=== PATIENT | female | born 1975 | race Caucasian/White ===

== ENCOUNTER 2019-04-19 08:49 | Inpatient (IN) | payer MEDICAID ==
[~2019-04-19] VITALS: Ht 170.2 cm; Wt 91.3 kg
[2019-04-19] MEDS ORDERED: LOSA50TA88 PO (09:18)
[2019-04-19] MEDS ORDERED: ATOR80TA59 PO (09:18)
[2019-04-19] MEDS ORDERED: cogentin PO (09:18)
[2019-04-19] MEDS ORDERED: HALD100I2 IM (09:18)
[2019-04-19] MEDS ORDERED: PLAV1TAB2 PO (09:18)
[2019-04-19] MEDS ORDERED: BUSP15TA47 PO (09:18)
[2019-04-19] MEDS ORDERED: MIRT1TAB16 PO (09:18)
[2019-04-19] MEDS ORDERED: VITA1CHW7 PO (09:18)
[2019-04-19] MEDS ORDERED: HALO10TA20 PO (09:18)
[2019-04-19] MEDS ORDERED: LEVO25TA5 PO (09:18)
[2019-04-19] MEDS ORDERED: ALBU83IN NEB (09:18)
[2019-04-19] MEDS ORDERED: TRIL1TAB PO (09:18)
[2019-04-19 10:09] LABS: HEMATOCRIT 36.7 % (36.0-47.0); HEMOGLOBIN 11.8 g/dl (12.0-15.5); MEAN CORPUSCULAR HEMOGLOBIN 27.7 pg (27.0-33.0); MEAN CORPUSCULAR HGB CONC 32.2 g/dl (32.0-36.5); MEAN CORPUSCULAR VOLUME 86.2 fl (80.0-96.0); PLATELET COUNT, AUTOMATED 298 10^3/uL (150-450); RED BLOOD COUNT 4.26 10^6/uL (4.00-5.40); WHITE BLOOD COUNT 7.2 10^3/uL (4.0-10.0)
[2019-04-19 10:38] LABS: HCG, SERUM QUALITATIVE NEGATIVE (NEGATIVE)
[2019-04-19 10:40] LABS: ACETAMINOPHEN LEVEL < 2.0 UG/ML (10.0-30.0); ALBUMIN 3.5 GM/DL (3.2-5.2); ALT/SGPT 21 U/L (12-78); BILIRUBIN,DIRECT 0.1 MG/DL (0.0-0.2); BILIRUBIN,TOTAL 0.2 MG/DL (0.2-1.0); BLOOD UREA NITROGEN 18 MG/DL (7-18); CALCIUM LEVEL 9.4 MG/DL (8.5-10.1); CARBON DIOXIDE LEVEL 23 MEQ/L (21-32); CHLORIDE LEVEL 108 MEQ/L (98-107); CREATININE FOR GFR 0.61 MG/DL (0.55-1.30); ETHYL ALCOHOL (ETHANOL) < 0.003 % (0.000-0.010); GLOMERULAR FILTRATION RATE > 60.0 (>58); GLUCOSE, FASTING 93 MG/DL (70-100); POTASSIUM SERUM 3.9 MEQ/L (3.5-5.1); SALICYLATE LEVEL 3.9 MG/DL (5.0-30.0); SODIUM LEVEL 140 MEQ/L (136-145); TOTAL PROTEIN 6.9 GM/DL (6.4-8.2)
[2019-04-19 12:42] LABS: AMPHETAMINES LEVEL URINE NEGATIVE (NEGATIVE); BARBITURATES URINE NEGATIVE (NEGATIVE); BENZODIAZEPINES URINE NEGATIVE (NEGATIVE); CANNABINOIDS URINE POSITIVE (NEGATIVE); COCAINE METABOLITE URINE NEGATIVE (NEGATIVE); METHADONE URINE NEGATIVE (NEGATIVE); OPIATES URINE NEGATIVE (NEGATIVE); PHENCYCLIDINE URINE NEGATIVE (NEGATIVE)
[2019-04-19] MEDS ORDERED: OLANZapine 5 MG TAB PO PRN (12:45)
[2019-04-19] MEDS ORDERED: MOM 30ML SUSPENSION UDC PO PRN (12:45)
[2019-04-19] MEDS ORDERED: ACETAMINOPHEN TAB 650MG DOSE (2X325MG) PO PRN (13:00)
[2019-04-19] MEDS ORDERED: METO1TAB87 PO (13:39)
[2019-04-19] MEDS ORDERED: OMEP-172 PO (13:39)
[2019-04-19] MEDS ORDERED: REME30TA PO (13:39)
[2019-04-19] MEDS ORDERED: BENZ-52 PO (13:39)
[2019-04-19] MEDS ORDERED: RANO500T7 PO (13:39)
[2019-04-19] MEDS ORDERED: FAMO20TA PO (13:39)
[2019-04-19] MEDS ORDERED: NITR4TASL SL (13:39)
[2019-04-19] MEDS ORDERED: PROAAER10 INH (13:40)
[2019-04-19 15:39] VITALS: BP 121/68
[2019-04-19 18:00] VITALS: BP 123/53
[2019-04-20 06:35] VITALS: BP 122/56
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
--- NOTE | 2019-04-20 13:37 | HPEPDOC ---
[facility] Medical History & Physical Date of Admission Apr 20, 2019 Date of Service: Apr 20, 2019 History and Physical CHIEF COMPLAINT: Admitted to inpatient mental health unit for suicidal ideation HISTORY OF PRESENT ILLNESS: 43-year-old female with past medical history of hypertension, schizophrenia, bipolar depression and NC is admitted to inpatient mental health unit for suicidal ideation. Patient reports that she ran out of her meds about a week ago and hasn't taken any of her meds since then. She started having auditory hallucinations telling her to commit suicide, so she came in seeking help. Medically she reports having an NC within the last 1-2 months, reports having cardiac cath which showed a 30% blockage in one of her arteries for which she is supposedly going to get a stent in the near future. She has not taken her cardiac meds for the past week as well. Currently, she denies any shortness of breath, chest pain, nausea, vomiting, abdominal pain or diarrhea. 10 point review of system is negative except for above PAST MEDICAL HISTORY: 1. Schizophrenia. 2. Bipolar. 3. NC. 4. Major depression disorder. 5. Hypertension PAST SURGICAL HISTORY: 1. Tubal ligation. 2. . 3. Tonsillectomy. SOCIAL HISTORY: Current smoker, smoked 1 pack per day for over 30 years Denies alcohol. Smokes marijuana, did Jazz a few days ago FAMILY HISTORY: Positive for heart disease ALLERGIES: Please see below. HOME MEDICATIONS: Please see below. PHYSICAL EXAMINATION: VITAL SIGNS: Please see below. GENERAL: No distress HEENT: Normocephalic, atraumatic, moist mucous membranes NECK: Supple CARDIOVASCULAR EXAMINATION: S1, S2, no murmurs RESPIRATORY EXAMINATION: Clear to auscultation, no wheezing ABDOMINAL EXAMINATION: Soft, nontender, nondistended, positive bowel sounds EXTREMITIES: Range of motion intact SKIN: No rash NEUROLOGICAL EXAMINATION: Alert and oriented 3, no focal deficits PSYCHIATRIC EXAMINATION: Calm and cooperative LABORATORY DATA: See below. MICROBIOLOGY: Please see below. ASSESSMENT: 3-year-old female with past medical history of hypertension, schizophrenia, bipolar, major depression disorder who had a recent NC is admitted to inpatient mental health unit for suicidal ideation. PLAN: 1. Suicidal ideation/schizophrenia. Having auditory hallucinations due to missing her medication for 1 week, management as per primary team. 2. Coronary artery disease. Status post NC recently, reportedly underwent left heart cath in [place] and had a 30% blockage in one of her arteries, reports that she is going to get a stent in the near future, has not taken any for cardiac meds for a whole week, continue optimal medical management with Plavix, statin, beta lubna and Ranexa. 3. Hypertension. Continue losartan, metoprolol, and Ranexa DVT prophylaxis: None GI prophylaxis: Home Pepcid and PPI Vital Signs Vital Signs Date Time Temp Pulse Resp B/P (MAP) Pulse Ox O2 Delivery O2 Flow Rate FiO2 04/20/19 06:35 98.2 72 12 122/56 (78) Room Air 04/19/19 15:39 96 Home Medications Scheduled Atorvastatin Calcium (Atorvastatin Calcium) 80 Mg Tablet, 80 MG PO QHS Benztropine Mesylate (Benztropine Mesylate) 1 Mg Tablet, 1 MG PO BID INCREASED AT INPATIENT FACILITY FROM 0.5MG Buspirone HCl (Buspirone HCl) 15 Mg Tablet, 15 MG PO TID Cholecalciferol (Vitamin D3) (Vitamin D3) 2,000 Unit Tab.chew, 2,000 UNIT PO DAILY Clopidogrel Bisulfate (Plavix) 75 Mg Tablet, 75 MG PO DAILY Famotidine (Famotidine) 20 Mg Tablet, 20 MG PO DAILY Haloperidol (Haloperidol) 10 Mg Tablet, 10 MG PO QHS INCREASED AT INPATIENT FACILITY FROM 5MG TO 10MG Haloperidol Decanoate (Haldol Decanoate 100) 100 Mg/1 Ml Ampul, 1 ML IM QMONTH Levothyroxine Sodium (Levothyroxine Sodium) 25 Mcg Tablet, 25 MCG PO DAILY Losartan Potassium (Losartan Potassium) 50 Mg Tablet, 50 MG PO DAILY Metoprolol Tartrate (Metoprolol Tartrate) 25 Mg Tablet, 25 MG PO DAILY Mirtazapine (Remeron) 30 Mg Tablet, 30 MG PO QHS Omeprazole (Omeprazole) 20 Mg Capsule.dr, 20 MG PO DAILY Oxcarbazepine (Trileptal) 300 Mg Tablet, 300 MG PO BID INCREASED AT INPATIENT FACILITY FROM 150MG Ranolazine (Ranexa) 500 Mg Tab.er.12h, 500 MG PO BID Scheduled PRN Albuterol Sulf (Albuterol Sulfate) 2.5 Mg/3 Ml Vial.neb, 1 VIAL NEB Q4HP PRN for SOB/WHEEZING Albuterol Sulfate (Proair Hfa) 8.5 Gm Hfa.aer.ad, 2 PUFF INH QID PRN for SHORTNESS OF BREATH Nitroglycerin (Nitrostat) 0.4 Mg Tab.subl, 0.4 MG SL Q5MP PRN for CHEST PAIN Allergies Coded Allergies: aspirin (Verified Allergy, Severe, throat closes up, 04/19/19) shellfish derived (Verified Allergy, Severe, ANAPHYLAXIS, 04/19/19) risperidone (Verified Allergy, Intermediate, rash, 04/19/19) divalproex sodium (Verified Adverse Reaction, Unknown, diarrhea, 04/19/19) A-FIB/CHADSVASC A-FIB History Current/History of A-Fib/PAF?: No URSULA MCCRARY MD Apr 20, 2019 13:36
[2019-04-20] MEDS: FAMOTIDINE 20 MG TAB PO SCH (13:58)
[2019-04-20] MEDS: LOSARTAN 50 MG TAB PO SCH (13:59)
[2019-04-20] MEDS: OMEPRAZOLE 20 MG CAP PO SCH (13:59)
[2019-04-20] MEDS: CLOPIDOGREL 75 MG TAB PO SCH (13:59)
[2019-04-20] MEDS: METOPROLOL TART 25 MG TABLET PO SCH (14:00)
[2019-04-20] MEDS: IBUPROFEN 400 MG TAB PO PRN (14:03)
--- NOTE | 2019-04-20 14:33 | ECGEPIP ---
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
[2019-04-20] MEDS: LEVOTHYROXINE 25MCG TABLET (0.025MG) PO SCH (14:37)
[2019-04-20] MEDS: RANOLAZINE 500 MG ER TAB PO SCH ×2 (14:37→21:20)
[2019-04-20 18:00] VITALS: BP 134/74
[2019-04-20] MEDS: ATORVASTATIN 20 MG TAB PO SCH (21:20)
[2019-04-20] MEDS: OXcarbazepine 300 MG TAB PO SCH (21:20)
[2019-04-20] MEDS: busPIRone 5 MG TAB PO SCH (21:20)
[2019-04-20] MEDS: MIRTAZAPINE 15 MG TAB PO SCH (21:20)
[2019-04-20] MEDS: haloperidoL 5 MG TAB PO SCH (21:20)
[2019-04-21] MEDS: LEVOTHYROXINE 25MCG TABLET (0.025MG) PO SCH (06:16)
[2019-04-21 06:20] VITALS: BP 96/48
[2019-04-21] MEDS: CLOPIDOGREL 75 MG TAB PO SCH (09:30)
[2019-04-21] MEDS: METOPROLOL TART 25 MG TABLET PO SCH (09:30)
[2019-04-21] MEDS: LOSARTAN 50 MG TAB PO SCH (09:30)
[2019-04-21] MEDS: OXcarbazepine 300 MG TAB PO SCH ×2 (09:30→21:08)
[2019-04-21] MEDS: FAMOTIDINE 20 MG TAB PO SCH (09:30)
[2019-04-21] MEDS: OMEPRAZOLE 20 MG CAP PO SCH (09:30)
[2019-04-21] MEDS: RANOLAZINE 500 MG ER TAB PO SCH ×2 (09:30→21:06)
[2019-04-21] MEDS: busPIRone 5 MG TAB PO SCH ×3 (09:30→21:08)
[2019-04-21 15:57] VITALS: BP 109/55
--- NOTE | 2019-04-21 20:59 | MHIPN ---
DATE: 04/21/2019 The patient today states that she is still experiencing auditory hallucinations, but she denies having suicidal thoughts. She says that it usually takes her about 4 days on medications before she starts feeling better. She has been started on Haldol and wants to restart the Haldol decanoate before she is discharged. MENTAL STATUS EXAMINATION: The patient is alert and oriented times three. He is pleasant, cooperative, verbally spontaneous. Eye contact is fair. Psychomotor activity is decreased. There is no formal thought disorder noted. Her mood is "okay." Affect is flat. She is not psychotic, suicidal or homicidal. Concentration is fair. Memory intact. Insight and judgment poor. Diagnoses Unspecified psychotic disorder. PTSD, chronic. Opioid use disorder, severe, in sustained remission. Hallucinogen use disorder, severe. Tobacco use disorder, severe. Cannabis use disorder, moderate. TREATMENT PLAN: At this point, we will continue to monitor the patient for her ongoing psychotic symptoms and resolution of any suicidal thoughts. CRISTINA
[2019-04-21] MEDS: MIRTAZAPINE 15 MG TAB PO SCH (21:07)
[2019-04-21] MEDS: IBUPROFEN 400 MG TAB PO PRN (21:08)
[2019-04-21] MEDS: ATORVASTATIN 20 MG TAB PO SCH (21:08)
[2019-04-21] MEDS: haloperidoL 5 MG TAB PO SCH (21:08)
[2019-04-22 06:14] VITALS: BP 123/60
[2019-04-22] MEDS: LEVOTHYROXINE 25MCG TABLET (0.025MG) PO SCH (06:29)
[2019-04-22] MEDS: FAMOTIDINE 20 MG TAB PO SCH (08:31)
[2019-04-22] MEDS: METOPROLOL TART 25 MG TABLET PO SCH (08:31)
[2019-04-22] MEDS: RANOLAZINE 500 MG ER TAB PO SCH ×2 (08:31→20:46)
[2019-04-22] MEDS: CLOPIDOGREL 75 MG TAB PO SCH (08:31)
[2019-04-22] MEDS: OXcarbazepine 300 MG TAB PO SCH ×2 (08:31→20:45)
[2019-04-22] MEDS: OMEPRAZOLE 20 MG CAP PO SCH (08:31)
[2019-04-22] MEDS: busPIRone 5 MG TAB PO SCH ×3 (08:31→20:46)
[2019-04-22] MEDS: LOSARTAN 50 MG TAB PO SCH (08:32)
[2019-04-22 15:52] VITALS: BP 116/65
[2019-04-22] MEDS: IBUPROFEN 400 MG TAB PO PRN (18:40)
--- NOTE | 2019-04-22 20:07 | MHIPN ---
DATE: 04/22/2019 The patient today states, "I am feeling fine." She says that she is just having some of her sciatic nerve pain down her legs. She says that she did not sleep as well. She is denying suicidal ideations. MENTAL STATUS EXAMINATION: She is alert and oriented times three. She is verbally spontaneous. Eye contact is fairly good. There is no formal thought disorder noted. She says her mood is good. Affect is constricted but appropriate to mood. She is not psychotic, suicidal or homicidal. Concentration is fair. Memory is intact. Insight and judgment fair. Diagnoses Unspecified psychotic disorder. PTSD, chronic. Opioid use disorder, severe, in sustained remission. Hallucinogen use disorder, severe. Tobacco use disorder, severe. TREATMENT PLAN: We will continue to monitor the patient for continued elevation and stabilization of her mood. We will continue to monitor the patient for resolution of suicidal ideations. CRISTINA
[2019-04-22] MEDS: ATORVASTATIN 20 MG TAB PO SCH (20:46)
[2019-04-22] MEDS: MIRTAZAPINE 15 MG TAB PO SCH (20:46)
[2019-04-22] MEDS: haloperidoL 5 MG TAB PO SCH (20:47)
[2019-04-23] MEDS: LEVOTHYROXINE 25MCG TABLET (0.025MG) PO SCH (05:56)
[2019-04-23 06:23] VITALS: BP 139/60
[2019-04-23] MEDS: OXcarbazepine 300 MG TAB PO SCH (09:21)
[2019-04-23] MEDS: FAMOTIDINE 20 MG TAB PO SCH (09:22)
[2019-04-23] MEDS: RANOLAZINE 500 MG ER TAB PO SCH (09:22)
[2019-04-23] MEDS: CLOPIDOGREL 75 MG TAB PO SCH (09:22)
[2019-04-23] MEDS: busPIRone 5 MG TAB PO SCH (09:22)
[2019-04-23] MEDS: OMEPRAZOLE 20 MG CAP PO SCH (09:23)
[2019-04-23] MEDS: METOPROLOL TART 25 MG TABLET PO SCH (09:23)
[2019-04-23 09:24] VITALS: BP 129/69
[2019-04-23] MEDS: LOSARTAN 50 MG TAB PO SCH (09:24)
[2019-04-23] MEDS ORDERED: BENZ-52 PO (10:36)
[2019-04-23] MEDS ORDERED: TRIL1TAB PO (10:36)
[2019-04-23] MEDS ORDERED: BUSP15TA47 PO (10:36)
[2019-04-23] MEDS ORDERED: REME30TA PO (10:36)
[2019-04-23] MEDS ORDERED: HALO10TA20 PO (10:36)
--- NOTE | 2019-04-23 10:37 | MHDSPDOC ---
[facility] Discharge Summary Discharge Summary DATE OF ADMISSION: Apr 19, 2019 at 12:31 DATE OF DISCHARGE: 04/23/18 Discharge Gloria Esparza MRN: N/A Date of : N/A Date of Service: 04/23/2019 Diagnoses PTSD, chronic. Opioid use disorder, severe, in sustained remission. Hallucinogen use disorder, severe. Tobacco use disorder, severe. Cannabis use disorder, moderate. History of Present Illness The patient, a 43-year-old woman with reported history of multiple substance use disorder and schizophrenia, presents after moving recently here several weeks ago from [place]. She reports she does not have her medications available to her and she had become increasingly depressed, suicidal, lost sleep and had changes in her eating. She had subsequently used some Jazz and became fairly psychotic, hearing voices. Due to her concern and fear for her safety, she had brought herself in to evaluate. She was admitted out of abundance of caution. Consultants Involved Hospitalist/PCP screening Treatment and Progress On The Unit The patient was initially admitted to our unit reported auditory hallucinations in the setting of stopping her medications as she had run out recently moving to this area from [place]. She was met with where she was notably insightful for reported psychotic symptoms with no internal response noted. She was restarted on her home medications of Remeron, Haldol, Haldol Decanoate 100 mg monthly, BuSpar with positive results. The patient had noted that she had done Jazz prior to presenting to the unit which was likely the provoking cause for her psychotic symptoms, although she was found to have quite significant PTSD possibly cluster B personality traits, however, these were not apparent during her admission and observation. Her reported psychotic symptoms were not apparent on mental status exam. She made good improvement on her home medications, had good insight, was sociable and friendly with no notable deficits in social processing further increasing my suspicion that her psychotic symptoms were likely secondary to hallucinogen use. She had requested to go on the Tuesday after she was admitted making good progress with a normal mental status exam, actively planning with her discharge team. Discharge Assessment 43-year-old woman with a history of multiple substance use problems and significant PTSD, presents after using hallucinogens, becoming mildly psychotic, however, upon her reaching the inpatient mental health unit, she did not appear to have any significant signs of psychosis, although her PTSD was apparent. She was restarted on her home medications with extremely positive results. She was given a dose of her Haldol decanoate before she had left linked with outpatient mental health. On the day of discharge, she declined further voluntary admission, did not meet involuntary criteria due to the fact that she had been denying suicidal and homicidal ideation through her stay, was not psychotic, had a normal mental status exam and good insight and was very cooperative with her discharge. Mental Status Examination General: Well dressed with good hygiene Speech: Spontaneous and fluid Thought processes: Linear and logical MSK: Smooth and coordinated gait, no signs of tremors or involuntary orofacial movements Thought content: Future orientated Abstract reasoning, and computation: Intact Description of associations: Intact Description of abnormal or psychotic thoughts: Denies any suicidal or homicidal ideation. Denies any auditory or visual hallucinations. Does not appear to be responding to internal stimuli. Does not appear to be endorsing any bizarre or paranoid ideation. Judgment: fair Insight: fair Orientation: Alert and orientated 3 Cognition: Grossly normal Recent and remote memory: Intact Attention span and concentration: Intact Fund of knowledge: Adequate Mood: "okay" Affect: Euthymic with a full range Follow Up The social work team worked during the predischarge meeting in order to evaluate for further issues of lethality address them fully before discharge. They worked on safety planning with the patient's family members in order to ensure that the patient will have a safe and effective discharge. Time Spent The amount of time spent in the coordination of care for this patient was approximately 60 minutes. Tuesday Vital Signs/I&Os Vital Signs Date Time Temp Pulse Resp B/P (MAP) Pulse Ox O2 Delivery O2 Flow Rate FiO2 04/23/19 09:24 129/69 04/23/19 09:23 75 04/23/19 06:23 98.4 18 04/23/19 06:23 Room Air 04/19/19 15:39 96 Medications Scheduled Atorvastatin Calcium (Atorvastatin Calcium) 80 Mg Tablet, 80 MG PO QHS for CAD for 30 Days, #30 Benztropine Mesylate (Benztropine Mesylate) 1 Mg Tablet, 1 MG PO BID for eps for 7 Days, #14 INCREASED AT INPATIENT FACILITY FROM 0.5MG Buspirone HCl (Buspirone HCl) 15 Mg Tablet, 15 MG PO TID for anxiety for 7 Days, #21 Cholecalciferol (Vitamin D3) (Vitamin D3) 2,000 Unit Tab.chew, 2,000 UNIT PO DAILY, (Reported) Clopidogrel Bisulfate (Plavix) 75 Mg Tablet, 75 MG PO DAILY for CAD, #30 Famotidine (Famotidine) 20 Mg Tablet, 20 MG PO DAILY for GERD, #30 Haloperidol (Haloperidol) 10 Mg Tablet, 10 MG PO QHS for mood for 7 Days, #7 INCREASED AT INPATIENT FACILITY FROM 5MG TO 10MG Haloperidol Decanoate (Haldol Decanoate 100) 100 Mg/1 Ml Ampul, 1 ML IM QMONTH, (Reported) Levothyroxine Sodium (Levothyroxine Sodium) 25 Mcg Tablet, 25 MCG PO DAILY, (Reported) Losartan Potassium (Losartan Potassium) 50 Mg Tablet, 50 MG PO DAILY for HTN, #30 Metoprolol Tartrate (Metoprolol Tartrate) 25 Mg Tablet, 25 MG PO DAILY for CAD, #30 Mirtazapine (Remeron) 30 Mg Tablet, 30 MG PO QHS for sleep for 7 Days, #7 Omeprazole (Omeprazole) 20 Mg Capsule.dr, 20 MG PO DAILY, (Reported) Oxcarbazepine (Trileptal) 300 Mg Tablet, 300 MG PO BID for anxiety for 7 Days, #14 INCREASED AT INPATIENT FACILITY FROM 150MG Ranolazine (Ranexa) 500 Mg Tab.er.12h, 500 MG PO BID, (Reported) Scheduled PRN Albuterol Sulf (Albuterol Sulfate) 2.5 Mg/3 Ml Vial.neb, 1 VIAL NEB Q4HP PRN for SOB/WHEEZING, (Reported) Albuterol Sulfate (Proair Hfa) 8.5 Gm Hfa.aer.ad, 2 PUFF INH QID PRN for SHORTNESS OF BREATH, (Reported) Nitroglycerin (Nitrostat) 0.4 Mg Tab.subl, 0.4 MG SL Q5MP PRN for CHEST PAIN, (Reported) Allergies Coded Allergies: aspirin (Verified Allergy, Severe, throat closes up, 04/19/19) shellfish derived (Verified Allergy, Severe, ANAPHYLAXIS, 04/19/19) risperidone (Verified Allergy, Intermediate, rash, 04/19/19) divalproex sodium (Verified Adverse Reaction, Unknown, diarrhea, 04/19/19) ELVER ACEVES DO Apr 23, 2019 10:37
[2019-04-23] MEDS ORDERED: HALOPERIDOL DECANOATE 100 MG/ML VIAL (J1631) IM ONE (10:45)
[2019-04-23] MEDS ORDERED: LOSA50TA88 PO (11:34)
[2019-04-23] MEDS ORDERED: PLAV1TAB2 PO (11:34)
[2019-04-23] MEDS ORDERED: ATOR80TA59 PO (11:34)
[2019-04-23] MEDS ORDERED: METO1TAB87 PO (11:35)
[2019-04-23] MEDS ORDERED: FAMO20TA PO (11:35)
== END 2019-04-23 11:40 | disposition home or self-care (01) | DRG 755 ==
LOC: M ED 08:49 → M ED INP 12:31 → M PSY 14:46
PROVIDERS: ADMIT Psychiatry & Neurology Addiction Medicine; ATTEND Psychiatry & Neurology Addiction Medicine
DX: F43.12 Post-traumatic stress disorder, chronic (principal); F16.259 Hallucinogen dependence with hallucinogen-induced psychotic disorder, unspecified; I10 Essential (primary) hypertension; F11.21 Opioid dependence, in remission; F17.200 Nicotine dependence, unspecified, uncomplicated; F12.20 Cannabis dependence, uncomplicated; K21.9 Gastro-esophageal reflux disease without esophagitis; F31.9 Bipolar disorder, unspecified; I25.2 Old myocardial infarction; E78.5 Hyperlipidemia, unspecified; Z79.899 Other long term (current) drug therapy; Z88.6 Allergy status to analgesic agent; Z88.8 Allergy status to other drugs, medicaments and biological substances; Z91.013 Allergy to seafood

== ENCOUNTER 2019-05-03 20:21 | Emergency (ER) | payer MEDICAID ==
[~2019-05-03] VITALS: Ht 170.2 cm; Wt 89.5 kg
[~2019-05-03 20:21] MED LIST: ALBU83IN NEB; ATOR80TA59 PO; BENZ-52 PO; BUSP15TA47 PO; FAMO20TA PO; HALD100I2 IM; HALO10TA20 PO; LEVO25TA5 PO; LOSA50TA88 PO; METO1TAB87 PO; MIRT1TAB16 PO; NITR4TASL SL; OMEP1CAP73 PO; PLAV1TAB2 PO; PROAAER10 INH; RANO500T7 PO; REME30TA PO; TRIL1TAB PO; VITA1CHW7 PO; cogentin PO
[2019-05-03] MEDS ORDERED: KETOROLAC 30 MG/ML VIAL (J1885) IV ONE (21:00)
[2019-05-03] MEDS ORDERED: ACETAMINOPHEN TAB 650MG DOSE (2X325MG) PO ONE (21:00)
[2019-05-03 21:06] LABS: BASO % 0.4 % (0.0-1.0); EOS % 0.4 % (0.0-3.0); HEMOGLOBIN 11.8 g/dl (12.0-15.5); LYMPH # 0.8 10^3/uL (1.5-5.0); LYMPH % 16.1 % (24.0-44.0); MEAN CORPUSCULAR HEMOGLOBIN 27.6 pg (27.0-33.0); MEAN CORPUSCULAR HGB CONC 31.9 g/dl (32.0-36.5); MEAN CORPUSCULAR VOLUME 86.4 fl (80.0-96.0); MONO # 0.9 10^3/uL (0.0-0.8); MONO % 17.4 % (0.0-5.0); NEUTROPHILS # 3.4 10^3/uL (1.5-8.5); NEUTROPHILS % 65.5 % (36.0-66.0); PLATELET COUNT, AUTOMATED 287 10^3/uL (150-450); RED BLOOD COUNT 4.28 10^6/uL (4.00-5.40); WHITE BLOOD COUNT 5.2 10^3/uL (4.0-10.0)
--- NOTE | 2019-05-03 21:20 | ECGEPIP ---
[facility] - ED Test Date: 2019-05-03 Pat Name: GERBER QURESHI Department: Room: - Gender: Female [employer]: CECELIA : 1975 Requested By: CONCETTA Sawyer Order Number: [id number] Reading MD: Maxine Lewis Measurements Intervals [place] Rate: 106 P: 25 IA: 136 QRS: 9 QRSD: 90 T: 29 QT: 334 QTc: 444 Interpretive Statements SINUS TACHYCARDIA ABNORMAL RHYTHM ECG INCREASED RATE 04/19/19 Electronically Signed on 05-03-2019 21:19:59 EST by Maxine Lewis
[2019-05-03 21:31] LABS: INFLUENZA A AMPLIFICATION POSITIVE (NEGATIVE); INFLUENZA B AMPLIFICATION NEGATIVE (NEGATIVE)
[2019-05-03 21:42] LABS: BLOOD UREA NITROGEN 12 MG/DL (7-18); CALCIUM LEVEL 8.6 MG/DL (8.5-10.1); CARBON DIOXIDE LEVEL 25 MEQ/L (21-32); CHLORIDE LEVEL 105 MEQ/L (98-107); CK-MB VALUE MASS < 1.0 NG/ML (<3.6); CPK CREATINE PHOSPHOKINASE 125 U/L (26-192); CREATININE FOR GFR 0.58 MG/DL (0.55-1.30); GLOMERULAR FILTRATION RATE > 60.0 (>58); GLUCOSE, FASTING 100 MG/DL (70-100); POTASSIUM SERUM 4.6 MEQ/L (3.5-5.1); SODIUM LEVEL 138 MEQ/L (136-145); TROPONIN I < 0.02 NG/ML (< 0.10)
[2019-05-03] MEDS ORDERED: OSELTAMIVIR PHOSPHATE 75 MG CAP (TAMIFLU) PO ONE (22:45)
[2019-05-03 23:30] LABS: CK-MB VALUE MASS < 1.0 NG/ML (<3.6); CPK CREATINE PHOSPHOKINASE 51 U/L (26-192); MB/CK RELATIVE INDEX 1.96 (< OR =4); TROPONIN I < 0.02 NG/ML (< 0.10)
[2019-05-03] MEDS ORDERED: OSEL75CA PO (23:43)
[2019-05-03 23:48] VITALS: BP 122/72
--- NOTE | 2019-05-04 08:13 | REP ---
Portable chest x-ray: Single view. History: Chest pain. Findings: The lungs are well inflated and clear. Pleural angles are sharp. EKG electrodes are seen. Cardiac silhouette is normal. Pulmonary vasculature is not increased. No bony abnormality. Impression: Negative portable chest x-ray. Electronically Signed by Alvarez Cardoza MD 05/04/2019 08:05 A
--- NOTE | 2019-05-05 09:35 | ECGEPIP ---
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
== END 2019-05-03 23:53 | disposition home or self-care (01) ==
LOC: M ED 20:21 → EDBD 20:21 → M ED 23:53
DX: J09.X9 Influenza due to identified novel influenza A virus with other manifestations (principal); I10 Essential (primary) hypertension; I25.2 Old myocardial infarction; Z79.899 Other long term (current) drug therapy; Z79.01 Long term (current) use of anticoagulants; Z88.8 Allergy status to other drugs, medicaments and biological substances; Z91.018 Allergy to other foods; F17.210 Nicotine dependence, cigarettes, uncomplicated
CPT/HCPCS: 71045; 80048; 82550; 82553; 84702; 85025; 87502; 93005; 93041; 94760; 96374; 99285; J1885

== ENCOUNTER 2019-05-22 12:16 | Emergency (ER) | payer MEDICAID, OTHER ==
[~2019-05-22] VITALS: Ht 170.2 cm; Wt 90.8 kg
[~2019-05-22 12:16] MED LIST changes: +OSEL75CA PO
[2019-05-22 12:54] LABS: BASO % 0.5 % (0.0-1.0); EOS # 0.1 10^3/uL (0.0-0.5); HEMOGLOBIN 12.3 g/dl (12.0-15.5); LYMPH % 36.1 % (24.0-44.0); MEAN CORPUSCULAR HEMOGLOBIN 27.6 pg (27.0-33.0); MEAN CORPUSCULAR HGB CONC 31.5 g/dl (32.0-36.5); MEAN CORPUSCULAR VOLUME 87.4 fl (80.0-96.0); MONO # 0.6 10^3/uL (0.0-0.8); MONO % 11.2 % (0.0-5.0); NEUTROPHILS # 2.8 10^3/uL (1.5-8.5); NEUTROPHILS % 49.8 % (36.0-66.0); PLATELET COUNT, AUTOMATED 249 10^3/uL (150-450); RED BLOOD COUNT 4.46 10^6/uL (4.00-5.40); WHITE BLOOD COUNT 5.6 10^3/uL (4.0-10.0)
--- NOTE | 2019-05-22 12:57 | REP ---
Portable chest, 12:44 p.m., single AP view with the the patient sitting: Comparison is 05/03/2019. The lung cavazos are clear. The cardiac size is normal. The himanshu, mediastinum, and skeletal structures are unremarkable. Impression: Negative portable chest. There is no interval change. Electronically Signed by Yifan Cameron MD 05/22/2019 12:48 P
[2019-05-22 13:18] LABS: BLOOD UREA NITROGEN 14 MG/DL (7-18); CALCIUM LEVEL 8.8 MG/DL (8.5-10.1); CARBON DIOXIDE LEVEL 30 MEQ/L (21-32); CHLORIDE LEVEL 106 MEQ/L (98-107); CK-MB VALUE MASS < 1.0 NG/ML (<3.6); CPK CREATINE PHOSPHOKINASE 84 U/L (26-192); CREATININE FOR GFR 0.49 MG/DL (0.55-1.30); GLOMERULAR FILTRATION RATE > 60.0 (>58); GLUCOSE, FASTING 97 MG/DL (70-100); MB/CK RELATIVE INDEX 1.19 (< OR =4); POTASSIUM SERUM 4.3 MEQ/L (3.5-5.1); SODIUM LEVEL 141 MEQ/L (136-145); TROPONIN I < 0.02 NG/ML (< 0.10)
[2019-05-22 14:00] VITALS: BP 186/100
[2019-05-22] MEDS ORDERED: LOSARTAN 50 MG TAB PO ONE (14:00)
[2019-05-22] MEDS ORDERED: KETOROLAC 30 MG/ML VIAL (J1885) IV ONE (14:00)
[2019-05-22 14:45] VITALS: BP 155/88
[2019-05-22] MEDS ORDERED: LOSA50TA88 PO (15:54)
--- NOTE | 2019-05-23 14:53 | ECGEPIP ---
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
[2019-05-23] MEDS ORDERED: BUSP15TA47 PO (18:48)
[2019-05-23] MEDS ORDERED: LOSA50TA88 PO (18:48)
[2019-05-23] MEDS ORDERED: OXCA300T14 PO (18:48)
[2019-05-23] MEDS ORDERED: PLAV1TAB2 PO (18:48)
[2019-05-23] MEDS ORDERED: BENZ-52 PO (18:48)
[2019-05-23] MEDS ORDERED: REME30TA PO (18:48)
[2019-05-23] MEDS ORDERED: ATOR80TA59 PO (18:48)
[2019-05-23] MEDS ORDERED: HALO5TA PO (18:48)
[2019-05-23] MEDS ORDERED: METO1TAB32 PO (18:48)
[2019-05-23] MEDS ORDERED: FAMO20TA5 PO (18:48)
== END 2019-05-22 16:32 | disposition home or self-care (01) ==
LOC: M ED 12:16
DX: I10 Essential (primary) hypertension (principal); F31.9 Bipolar disorder, unspecified; Z79.899 Other long term (current) drug therapy; Z79.01 Long term (current) use of anticoagulants; Z88.8 Allergy status to other drugs, medicaments and biological substances; Z91.018 Allergy to other foods; F17.210 Nicotine dependence, cigarettes, uncomplicated; F12.20 Cannabis dependence, uncomplicated; F15.20 Other stimulant dependence, uncomplicated
CPT/HCPCS: 71045; 80048; 82550; 82553; 85025; 93005; 93041; 94760; 96374; 99285; J1885

== ENCOUNTER 2019-05-23 15:15 | Inpatient (IN) | payer OTHER ==
[~2019-05-23] VITALS: Ht 170.2 cm; Wt 93.4 kg
[2019-05-23 16:11] LABS: HEMATOCRIT 37.8 % (36.0-47.0); HEMOGLOBIN 11.8 g/dl (12.0-15.5); MEAN CORPUSCULAR HEMOGLOBIN 27.4 pg (27.0-33.0); MEAN CORPUSCULAR HGB CONC 31.2 g/dl (32.0-36.5); MEAN CORPUSCULAR VOLUME 87.9 fl (80.0-96.0); PLATELET COUNT, AUTOMATED 254 10^3/uL (150-450); WHITE BLOOD COUNT 5.4 10^3/uL (4.0-10.0)
[2019-05-23 16:39] LABS: AMPHETAMINES LEVEL URINE NEGATIVE (NEGATIVE); BARBITURATES URINE NEGATIVE (NEGATIVE); BENZODIAZEPINES URINE NEGATIVE (NEGATIVE); CANNABINOIDS URINE POSITIVE (NEGATIVE); COCAINE METABOLITE URINE NEGATIVE (NEGATIVE); METHADONE URINE NEGATIVE (NEGATIVE); OPIATES URINE NEGATIVE (NEGATIVE); PHENCYCLIDINE URINE NEGATIVE (NEGATIVE)
[2019-05-23 16:43] LABS: ACETAMINOPHEN LEVEL < 2.0 UG/ML (10.0-30.0); ALBUMIN 3.6 GM/DL (3.2-5.2); ALT/SGPT 20 U/L (12-78); BILIRUBIN,DIRECT < 0.1 MG/DL (0.0-0.2); BILIRUBIN,TOTAL 0.2 MG/DL (0.2-1.0); BLOOD UREA NITROGEN 12 MG/DL (7-18); CALCIUM LEVEL 8.6 MG/DL (8.5-10.1); CARBON DIOXIDE LEVEL 27 MEQ/L (21-32); CHLORIDE LEVEL 110 MEQ/L (98-107); CREATININE FOR GFR 0.49 MG/DL (0.55-1.30); ETHYL ALCOHOL (ETHANOL) < 0.003 % (0.000-0.010); GLOMERULAR FILTRATION RATE > 60.0 (>58); GLUCOSE, FASTING 85 MG/DL (70-100); POTASSIUM SERUM 4.3 MEQ/L (3.5-5.1); SALICYLATE LEVEL < 1.7 MG/DL (5.0-30.0); SODIUM LEVEL 141 MEQ/L (136-145); TOTAL PROTEIN 7.1 GM/DL (6.4-8.2)
[2019-05-23] MEDS ORDERED: METOPROLOL TART 25 MG TABLET PO ONE (16:45)
[2019-05-23] MEDS ORDERED: CHLORTHALIDONE 12.5MG PER 1/2 TABLET PO ONE (18:15)
[2019-05-23] MEDS ORDERED: LOSARTAN 50 MG TAB PO ONE (18:15)
[2019-05-23] MEDS ORDERED: BUSP15TA47 PO (18:48)
[2019-05-23] MEDS ORDERED: BENZ-52 PO (18:48)
[2019-05-23] MEDS ORDERED: OXCA300T14 PO (18:48)
[2019-05-23] MEDS ORDERED: FAMO20TA5 PO (18:48)
[2019-05-23] MEDS ORDERED: REME30TA PO (18:48)
[2019-05-23] MEDS ORDERED: METO1TAB32 PO (18:48)
[2019-05-23] MEDS ORDERED: HALO5TA PO (18:48)
[2019-05-23] MEDS ORDERED: PLAV1TAB2 PO (18:48)
[2019-05-23] MEDS ORDERED: ATOR80TA59 PO (18:48)
[2019-05-23] MEDS ORDERED: LOSA50TA88 PO (18:48)
[2019-05-23] MEDS ORDERED: MAALOX 30 ML SUSP *UDC PO PRN (21:15)
[2019-05-23] MEDS ORDERED: MOM 30ML SUSPENSION UDC PO PRN (21:15)
[2019-05-23] MEDS ORDERED: ALBUTEROL SULFATE 2.5 MG/0.5 ML INH NEB SOLN NEB PRN (21:15)
[2019-05-23] MEDS ORDERED: NITROGLYCERIN 0.4 MG SUBL TABLET SL PRN (21:30)
[2019-05-23 23:44] VITALS: BP 156/76
[2019-05-24] MEDS: busPIRone 5 MG TAB PO SCH ×4 (01:02→21:03)
[2019-05-24] MEDS: RANOLAZINE 500 MG ER TAB PO SCH ×3 (01:02→21:03)
[2019-05-24] MEDS: MIRTAZAPINE 15 MG TAB PO SCH ×2 (01:03→21:03)
[2019-05-24] MEDS: haloperidoL 5 MG TAB PO SCH ×2 (01:03→21:02)
[2019-05-24] MEDS: FAMOTIDINE 20 MG TAB PO SCH ×2 (01:03→21:03)
[2019-05-24] MEDS: BENZTROPINE 1 MG TAB PO SCH ×3 (01:03→21:03)
[2019-05-24] MEDS: ACETAMINOPHEN TAB 650MG DOSE (2X325MG) PO PRN ×2 (01:04→21:39)
[2019-05-24] MEDS: LEVOTHYROXINE 25MCG TABLET (0.025MG) PO SCH (05:59)
[2019-05-24 06:23] VITALS: BP_SYST 100; BP_SYST 120; BP_DIAS 60; BP_DIAS 84
[2019-05-24] MEDS ORDERED: BENZTROPINE 1 MG TAB PO SCH (09:00)
[2019-05-24] MEDS ORDERED: RANOLAZINE 500 MG ER TAB PO SCH (09:00)
[2019-05-24] MEDS ORDERED: busPIRone 5 MG TAB PO SCH (09:00)
[2019-05-24] MEDS ORDERED: FAMOTIDINE 20 MG TAB PO SCH (09:00)
[2019-05-24] MEDS: OMEPRAZOLE 20 MG CAP PO SCH (09:47)
[2019-05-24] MEDS: METOPROLOL SUCC *XL* 25MG TAB (TopROL *XL*) PO SCH (09:47)
[2019-05-24] MEDS: ATORVASTATIN 20 MG TAB PO SCH (09:47)
[2019-05-24] MEDS: LOSARTAN 50 MG TAB PO SCH (09:48)
[2019-05-24] MEDS: CLOPIDOGREL 75 MG TAB PO SCH (09:48)
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
[2019-05-24] MEDS ORDERED: PARoxetine 20 MG TAB PO ONE (12:00)
--- NOTE | 2019-05-24 12:17 | HPEPDOC ---
General Date of Admission May 23, 2019 at 21:15 Date of Service: May 24, 2019 Attending Physician: NIKO CHASE MD Chief Complaint The patient is a 43-year-old female admitted with a reason for visit of Unspecified Depression. Source: Patient Exam Limitations: No limitations Timing/Duration: Other Severity: Other Associated Symptoms: Other (suicidal thoughts) History of Present Illness 43-year-old W with hypertension, schizophrenia, bipolar depression, CAD s/p recent LHC on ASA/plavix?, PSUD with meth and monica who was recently admitted to inpatient mental health unit for suicidal ideation who returned to the ED with suicidal ideation after a few days of non compliance with her medications while using meth and monica. This time, she denies auditory or visual hallucinations but has had self harming thoughts and so decided to come to the ED. 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 pending stent? and is on ASA/plavix? Thankfully she currently denies any shortness of breath, chest pain, nausea, vomiting, abdominal pain or diarrhea. Home Medications Scheduled Atorvastatin Calcium (Atorvastatin Calcium) 80 Mg Tablet, 80 MG PO DAILY, (Reported) Benztropine Mesylate (Benztropine Mesylate) 1 Mg Tablet, 1 MG PO BID, (Reported) Buspirone HCl (Buspirone HCl) 15 Mg Tablet, 15 MG PO TID, (Reported) Cholecalciferol (Vitamin D3) (Vitamin D3) 2,000 Unit Tab.chew, 2,000 UNIT PO DAILY, (Reported) Clopidogrel Bisulfate (Plavix) 75 Mg Tablet, 75 MG PO DAILY, (Reported) Famotidine (Famotidine) 20 Mg Tablet, 20 MG PO DAILY, (Reported) Haloperidol (Haloperidol) 5 Mg Tablet, 5 MG PO QHS, (Reported) Haloperidol Decanoate (Haldol Decanoate 100) 100 Mg/1 Ml Ampul, 1 ML IM QMONTH, (Reported) Levothyroxine Sodium (Levothyroxine Sodium) 25 Mcg Tablet, 25 MCG PO DAILY, (Reported) Losartan Potassium (Losartan Potassium) 50 Mg Tablet, 50 MG PO DAILY, (Reported) Metoprolol Succinate (Metoprolol Succinate) 25 Mg Tab.er.24h, 25 MG PO DAILY, (Reported) Mirtazapine (Remeron) 30 Mg Tablet, 30 MG PO QHS, (Reported) Omeprazole (Omeprazole) 20 Mg Capsule.dr, 20 MG PO DAILY, (Reported) Oxcarbazepine (Oxcarbazepine) 300 Mg Tablet, 300 MG PO BID, (Reported) Ranolazine (Ranexa) 500 Mg Tab.er.12h, 500 MG PO BID, (Reported) Scheduled PRN Albuterol Sulf (Albuterol Sulfate) 2.5 Mg/3 Ml Vial.neb, 1 VIAL NEB Q4H PRN for SOB/WHEEZING, (Reported) Albuterol Sulfate (Proair Hfa) 8.5 Gm Hfa.aer.ad, 2 PUFF INH QID PRN for SHORTNESS OF BREATH, (Reported) Nitroglycerin (Nitrostat) 0.4 Mg Tab.subl, 0.4 MG SL NITRO PRN for CHEST PAIN, (Reported) Allergies Coded Allergies: aspirin (Verified Allergy, Severe, throat closes up, 04/19/19) shellfish derived (Verified Allergy, Severe, ANAPHYLAXIS, 04/19/19) risperidone (Verified Allergy, Intermediate, rash, 04/19/19) divalproex sodium (Verified Adverse Reaction, Unknown, diarrhea, 04/19/19) Past Medical History Medical History 1. 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 Chart diagnosis of bipolar, schizophrenia and depression 3. CAD 4. Hypertension Surgical History 1. Tubal ligation. 2. . 3. Tonsillectomy. 4. Recent left heart cath Family History Significant Family History: No pertinent family hx Social History * Smoker: current smoker Alcohol: Denies Drugs: marijuana, IV drug use, other (monica) Recent Travel/Sick Contacts: Denies: Recent travel, Recent sick contacts Psychosocial History: Bipolar, Depression, Emotional problems, Schizophrenia, Suicidal thoughts Current smoker, smoked 1 pack per day for over 30 years Denies alcohol Smokes MJ, does monica and meth A-FIB/CHADSVASC A-FIB History Current/History of A-Fib/PAF?: No Current PO Anticoag Therapy: No Age/Risk Factor Scoring CHADSVASC: CHADSVASC Response (Comments) Value Age Risk Factor Age < 65 years old 0 Gender Risk Factor Female 1 Hx of CHF No 0 Hx of HTN No 0 Hx of Stroke/TIA/or VTE No 0 Hx of Diabetes No 0 Hx of Vascular Disease No 0 Total 1 Treatment Treatment ordered: NONE Reason Anticoagulant not given: Not indicated/[id number] Review of Systems Constitutional: Denies: Chills, Fever, Night Sweats Eyes: Denies: Pain, Vision change ENT: Denies: Head Aches, Ear Pain, Dysphagia Skin: Denies: Rash, Lesions, Breakdown Pulmonary: Denies: Dyspnea, Cough Cardiovascular: Denies: Chest Pain, Palpitations, Orthopnea, Paroxysmal Noc. Dyspnea, Lt Headedness Gastrointestinal: Denies: Nausea, Vomiting, Abdominal Pain, Diarrhea Genitourinary: Denies: Dysuria, Frequency, Incontinence, Retention Hematologic: Denies: Bruising, Bleeding Excessively Endocrine: Denies: Polydipsia, Polyphagia, Polyuria, Heat Intolerance, Cold Intolerance, Other Endocrine Sx Musculoskeletal: Denies: Neck Pain, Back Pain, Joint Pain, Muscle Pain, Spasms Neurological: Denies: Weakness, Numbness, Change in speech, Confusion Psych: Reports: Depression, Thoughts of Self Harm Physical Examination General Exam: Positive: Alert, No Acute Distress Eye Exam: Positive: PERRLA, Conjunctiva & lids normal, EOMI; Negative: Sclera icteric ENT Exam: Positive: Atraumatic, Mucous membr. moist/pink, Pharynx Normal Neck Exam: Positive: Supple; Negative: JVD, thyromegaly Chest Exam: Positive: Clear to auscultation, Normal air movement; Negative: Rales, Rhonchi, Wheezing Heart Exam: Positive: Rate Normal, Regular Rhythm, Normal S1, Normal S2; Negative: Murmurs, Rubs Abdomen Exam: Positive: Normal bowel sounds, Soft, Other (obese); Negative: Tenderness, Hepatospenomegaly Extremity Exam: Positive: Normal pulses; Negative: Clubbing, Cyanosis, Edema Skin Exam: Positive: Nl turgor and temperature; Negative: Breakdown, Lesion Neuro Exam: Positive: Normal Gait, Normal Speech, Cranial Nerves 3-12 NL Psych Exam: Positive: Mental status NL, Memory Intact, Oriented x 3; Negative: Mood NL (depressed) Vital Signs Vital Signs Date Time Temp Pulse Resp B/P (MAP) Pulse Ox O2 Delivery O2 Flow Rate FiO2 05/24/19 09:48 136/81 05/24/19 09:47 90 05/24/19 09:43 Room Air 05/24/19 06:23 97.5 18 05/23/19 23:44 99 Laboratory Data Labs 24H Laboratory Tests 2 05/23/19 15:49: Nucleated Red Blood Cells % (auto) 0.0, Anion Gap 4L, Glomerular Filtration Rate > 60.0, Calcium Level 8.6, Total Bilirubin 0.2, Direct Bilirubin < 0.1, Aspartate Amino Transf (AST/SGOT) 12, Alanine Aminotransferase (ALT/SGPT) 20, Alkaline Phosphatase 116, Total Protein 7.1, Albumin 3.6, Albumin/Globulin Ratio 1.03, Thyroid Stimulating Hormone (TSH) 0.310L, Salicylates Level < 1.7L, Urine Opiates Screen NEGATIVE, Urine Methadone Screen NEGATIVE, Acetaminophen Level < 2.0L, Urine Barbiturates Screen NEGATIVE, Urine Phencyclidine Screen NEGATIVE, Urine Amphetamines Screen NEGATIVE, Urine Benzodiazepines Screen NEGATIVE, Urine Cocaine Metabolite Screen NEGATIVE, Urine Cannabinoids Screen POSITIVEH, Ethyl Alcohol Level < 0.003 CBC/BMP Laboratory Tests 05/23/19 15:49 Assessment/Plan 43-year-old woman with hypertension, schizophrenia, bipolar, major depression disorder who had a recent MT? s/p [facility] unclear if stent was placed as she is on ASA/plavix (assume it was placed though she reports that they would place later?) who is admitted to inpatient mental health unit for suicidal ideation in the setting of psych meds non compliance and meth and monica abuse. PLAN: 1. Suicidal ideation: With chart diagnosis of schizophrenia, bipolar, depression and medication non compliance. management as per primary team: was currently placed on buspar, haldol, remeron, trazodone, cogentin 2. Coronary artery disease, with history of recent MT? s/p LHC with likely placement of stent though patient appears to believe that stent was not placed but is on ASA/plavix Will continue ASA/Plavix, statin, beta lubna, PRN nitroglycerin and ranolazine 3. Hypertension. Continue losartan, toprol, chlorthalidone 4. GERD - Continue Pepcid and mylanta 5. Hypothyroidism: - Continue synthroid DVT prophylaxis: None, ambulatory GI prophylaxis: Home Pepcid and PPI Thank you for involving us in the care of your patient. Will sign off at this time. Please reconsult for any further medical concerns. Plan / VTE VTE Prophylaxis Ordered?: No VTE Exclusion Mechanical Proph: Low Risk for VTE VTE Exclusion Pharmacological: At Low Risk for VTE NIKO CHASE MD May 24, 2019 12:17
[2019-05-24 18:41] VITALS: BP 104/54
[2019-05-24] MEDS ORDERED: haloperidoL 5 MG TAB PO SCH (21:00)
[2019-05-24] MEDS ORDERED: MIRTAZAPINE 15 MG TAB PO SCH (21:00)
[2019-05-25] MEDS: LEVOTHYROXINE 25MCG TABLET (0.025MG) PO SCH (05:58)
[2019-05-25 06:10] VITALS: BP 131/68
[2019-05-25] MEDS: ACETAMINOPHEN TAB 650MG DOSE (2X325MG) PO PRN ×3 (06:42→21:26)
[2019-05-25] MEDS: PARoxetine 20 MG TAB PO SCH (08:27)
[2019-05-25] MEDS: OMEPRAZOLE 20 MG CAP PO SCH (08:28)
[2019-05-25] MEDS: ATORVASTATIN 20 MG TAB PO SCH (08:29)
[2019-05-25] MEDS: LOSARTAN 50 MG TAB PO SCH (08:29)
[2019-05-25] MEDS: CLOPIDOGREL 75 MG TAB PO SCH (08:29)
[2019-05-25] MEDS: BENZTROPINE 1 MG TAB PO SCH ×2 (08:29→20:21)
[2019-05-25] MEDS: busPIRone 5 MG TAB PO SCH ×3 (08:29→20:21)
[2019-05-25] MEDS: METOPROLOL SUCC *XL* 25MG TAB (TopROL *XL*) PO SCH (08:30)
[2019-05-25] MEDS: RANOLAZINE 500 MG ER TAB PO SCH ×2 (08:30→20:22)
--- NOTE | 2019-05-25 10:14 | MHIPNPDOC ---
[facility] Progress Note Progress Note DATE OF SERVICE: 05/25/19 HISTORY: Patient is a 43 -year-old , female, with a history of PTSD and polysubstance abuse and recently d/c IMHU for unspecified psychosis secondary to Monica use 1 month ago who was brought to ED by PD on 9.41 after she was seen at [facility] endorsing SI with a plan to OD. Pt stated in the ED that she recently moved from [place] to [place] after she relapsed on amphetamines and Monica 1.5yrs ago to get into recovery. States soon after moving in with her niece she realized that her niece was also abusing substances and pt therefore was unable to stay clean. Pt stated in the ED that she woke up yesterday feeling very depressed and suicidal which caused her to line up her pills to overdose but then called her daughter instead who encouraged her to get help so pt went to [facility] as a walk-in who then sent her to ED with PD. Endorses current use of Adderall and and Monica and wants to get help to stop abuse. Pt seen and states she been feeling "really depressed" and suicidal due to her relapse on adderall and monica with continued use. States depression caused her to line up all her pills yesterday to OD on them but called her daughter instead who encouraged her to go to [facility] for help. Pt states that she hasn't been very compliant on her outpatient meds which is making her feel depressed too. States she used to take paxil for depression that she found very beneficial and would like to start again here to help which will be done. She is interested to referral to inpatient substance abuse to aid her in getting into recovery. Denies current SI/HI, hallucinations, delusions. Feels safe here. VITAL SIGNS: See below. NEW TEST RESULTS: See below. CURRENT MEDICATIONS: See below. MENTAL STATUS EXAMINATION: General Appearance: unkempt, disheveled, ds/not appear stated age (older), hospital scubs/clothing, other (malodorous) Build: overweight Demeanor: less withdrawn Eye Contact: average Activity: slowed Behavior: cooperative, less withdrawn Speech: clear, spontaneous, low in volume Mood: less depressed Mood "a little better" Affect: less constricted, flat, congruent Thought Process: logical/linear, depressed, slow, intact Thought Content (Delusions): none reported, denies SI, HI, AVH Thought Content (Other): none reported Thought Content (Aggressive): none reported Perception (Hallucinations): none reported Perception (Other): none reported Cognition (Impairment of): none reported Cognition(Intelligence Est.): average Oriented: Awake, Alert, Oriented times three Insight: fair Judgment: Fair Psychosis: Denies DIAGNOSES: Depression unspecified 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 Feels she is tolerating his medications and they're beneficial. Is awaiting positive response from paxil as she just started it yesterday, is tolerating well, but feels it's too soon to notice any mood improvement from it just yet. She is attending groups and finding them helpful. She denies SI/HI, hallucinations, delusions. Pt is being referred to inpatient reahap which she states she feels really good about and is hopeful to be accepted soon. Pt feels safe here. MANAGEMENT PLAN: continue plan, refer to inpatient rehab. Haldol 5 mg nightly BuSpar 15 mg TID Remeron 30 mg QHS Trileptal 300 mg BID paxil 20mg daily for mood TIME SPENT: 30 minutes. Vital Signs Vital Signs Date Time Temp Pulse Resp B/P (MAP) Pulse Ox O2 Delivery O2 Flow Rate FiO2 05/25/19 08:30 67 05/25/19 08:29 123/73 05/25/19 06:10 97.5 16 05/24/19 09:43 Room Air 05/23/19 23:44 99 Current Medications Current Medications Medications (Trade) Dose Ordered Sig/Kody Route PRN Reason Start Time Stop Time Status Last Admin Dose Admin Acetaminophen (Tylenol Tab) 650 mg Q6HP PRN PO HEADACHE or DISCOMFORT 05/23/19 21:15 05/25/19 06:42 Al Hydrox/Mg Hydrox/Simethicone (Mylanta) 30 ml Q4HP PRN PO HEARTBURN/INDIGESTION 05/23/19 21:15 Albuterol Sulfate (Proventil Neb) 1 mg Q4H PRN NEB SOB/WHEEZING 05/23/19 21:15 Atorvastatin Calcium (Lipitor) 80 mg DAILY PO 05/24/19 09:00 05/25/19 08:29 Benztropine Mesylate (Cogentin) 1 mg BID PO 05/24/19 00:45 05/25/19 08:29 Benztropine Mesylate (Cogentin) 1 mg BID PO 05/24/19 09:00 05/24/19 00:42 DC Buspirone HCl (Buspar) 15 mg TID PO 05/24/19 00:45 05/25/19 08:29 Buspirone HCl (Buspar) 15 mg TID PO 05/24/19 09:00 05/24/19 00:42 DC Clopidogrel Bisulfate (PLAVix) 75 mg DAILY PO 05/24/19 09:00 05/25/19 08:29 Famotidine (Pepcid) 20 mg DAILY PO 05/24/19 09:00 05/24/19 00:42 DC Famotidine (Pepcid) 20 mg QHS PO 05/24/19 00:45 05/24/19 21:03 Haloperidol (Haldol) 5 mg QHS PO 05/24/19 00:45 05/24/19 21:02 Haloperidol (Haldol) 5 mg QHS PO 05/24/19 21:00 05/24/19 00:42 DC Home Med (Med Rec Complete!) ASDIRECTED XX 05/23/19 19:00 05/23/19 18:54 DC Levothyroxine Sodium (Synthroid) 25 mcg DAILY@0600 PO 05/24/19 06:00 05/25/19 05:58 Losartan Potassium (Cozaar) 50 mg DAILY PO 05/24/19 09:00 05/25/19 08:29 Magnesium Hydroxide (Milk Of Magnesia) 30 ml DAILYPRN PRN PO CONSTIPATION 05/23/19 21:15 Metoprolol Succinate (TopROL XL) 25 mg DAILY PO 05/24/19 09:00 05/25/19 08:30 Mirtazapine (Remeron) 30 mg QHS PO 05/24/19 00:45 05/24/19 21:03 Mirtazapine (Remeron) 30 mg QHS PO 05/24/19 21:00 05/24/19 00:42 DC Nitroglycerin (Nitrostat (1/ 150)) 0.4 mg Q5MP PRN SL CHEST PAIN 05/23/19 21:30 Omeprazole (PriLOSEC) 20 mg DAILY PO 05/24/19 09:00 05/25/19 08:28 Paroxetine HCl (PAXil) 20 mg DAILY PO 05/25/19 09:00 05/25/19 08:27 Ranolazine (Ranexa) 500 mg BID PO 05/24/19 00:45 05/25/19 08:30 Ranolazine (Ranexa) 500 mg BID PO 05/24/19 09:00 05/24/19 00:42 DC Trazodone HCl (Desyrel) 50 mg QHSP PRN PO INSOMNIA 05/23/19 21:15 Allergies Coded Allergies: aspirin (Verified Allergy, Severe, throat closes up, 04/19/19) shellfish derived (Verified Allergy, Severe, ANAPHYLAXIS, 04/19/19) risperidone (Verified Allergy, Intermediate, rash, 04/19/19) divalproex sodium (Verified Adverse Reaction, Unknown, diarrhea, 04/19/19) SHWETA SMALLS DO May 25, 2019 9:15 am
[2019-05-25 16:24] VITALS: BP 136/85
[2019-05-25] MEDS: FAMOTIDINE 20 MG TAB PO SCH (20:22)
[2019-05-25] MEDS: MIRTAZAPINE 15 MG TAB PO SCH (20:22)
[2019-05-25] MEDS: traZODone 50 MG TAB PO PRN (20:22)
[2019-05-25] MEDS: haloperidoL 5 MG TAB PO SCH (20:22)
[2019-05-26 05:53] VITALS: BP 117/59
[2019-05-26] MEDS: LEVOTHYROXINE 25MCG TABLET (0.025MG) PO SCH (06:20)
[2019-05-26] MEDS: PARoxetine 20 MG TAB PO SCH (08:19)
[2019-05-26] MEDS: OMEPRAZOLE 20 MG CAP PO SCH (08:20)
[2019-05-26] MEDS: METOPROLOL SUCC *XL* 25MG TAB (TopROL *XL*) PO SCH (08:20)
[2019-05-26] MEDS: busPIRone 5 MG TAB PO SCH ×3 (08:20→20:06)
[2019-05-26] MEDS: BENZTROPINE 1 MG TAB PO SCH ×2 (08:20→20:07)
[2019-05-26] MEDS: LOSARTAN 50 MG TAB PO SCH (08:20)
[2019-05-26] MEDS: ATORVASTATIN 20 MG TAB PO SCH (08:20)
[2019-05-26] MEDS: RANOLAZINE 500 MG ER TAB PO SCH ×2 (08:21→20:07)
[2019-05-26] MEDS: CLOPIDOGREL 75 MG TAB PO SCH (08:21)
--- NOTE | 2019-05-26 09:53 | MHIPNPDOC ---
[facility] Progress Note Progress Note DATE OF SERVICE: 05/26/19 HISTORY: Patient is a 43 -year-old , female, with a history of PTSD and polysubstance abuse and recently d/c IMHU for unspecified psychosis secondary to Monica use 1 month ago who was brought to ED by PD on after she was seen at [facility] endorsing SI with a plan to OD. Pt stated in the ED that she recently moved from [place] to [place] after she relapsed on amphetamines and Monica 1.5yrs ago to get into recovery. States soon after moving in with her niece she realized that her niece was also abusing substances and pt therefore was unable to stay clean. Pt stated in the ED that she woke up yesterday feeling very depressed and suicidal which caused her to line up her pills to overdose but then called her daughter instead who encouraged her to get help so pt went to [facility] as a walk-in who then sent her to ED with PD. Endorses current use of Adderall and and Monica and wants to get help to stop abuse. Pt seen and states she been feeling "really depressed" and suicidal due to her relapse on adderall and monica with continued use. States depression caused her to line up all her pills yesterday to OD on them but called her daughter instead who encouraged her to go to [facility] for help. Pt states that she hasn't been very compliant on her outpatient meds which is making her feel depressed too. States she used to take paxil for depression that she found very beneficial and would like to start again here to help which will be done. She is interested to referral to inpatient substance abuse to aid her in getting into recovery. Denies current SI/HI, hallucinations, delusions. Feels safe here. VITAL SIGNS: See below. NEW TEST RESULTS: See below. CURRENT MEDICATIONS: See below. MENTAL STATUS EXAMINATION: General Appearance: unkempt, disheveled, ds/not appear stated age (older), hospital scubs/clothing, other (malodorous) Build: overweight Demeanor: less withdrawn Eye Contact: average Activity: slowed Behavior: cooperative, less withdrawn Speech: clear, spontaneous, low in volume Mood: less depressed Mood "ok" Affect: less constricted, flat, congruent Thought Process: logical/linear, depressed, slow, intact Thought Content (Delusions): none reported, denies SI, HI, AVH Thought Content (Other): none reported Thought Content (Aggressive): none reported Perception (Hallucinations): none reported Perception (Other): none reported Cognition (Impairment of): none reported Cognition(Intelligence Est.): average Oriented: Awake, Alert, Oriented times three Insight: fair Judgment: Fair Psychosis: Denies DIAGNOSES: Depression unspecified 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 Feels she is tolerating his medications and they're beneficial. Feel paxil is starting to be beneficial to her mood.. She is attending groups and finding them helpful. She denies SI/HI, hallucinations, delusions. Pt is being referred to inpatient reahap which she states she feels really good about and is hopeful to be accepted soon. Pt feels safe here. MANAGEMENT PLAN: continue plan, refer to inpatient rehab. Haldol 5 mg nightly BuSpar 15 mg TID Remeron 30 mg QHS Trileptal 300 mg BID paxil 20mg daily for mood TIME SPENT: 30 minutes. Vital Signs Vital Signs Date Time Temp Pulse Resp B/P (MAP) Pulse Ox O2 Delivery O2 Flow Rate FiO2 05/26/19 08:20 64 122/64 05/26/19 05:53 97.9 16 05/24/19 09:43 Room Air 05/23/19 23:44 99 Current Medications Current Medications Medications (Trade) Dose Ordered Sig/Kody Route PRN Reason Start Time Stop Time Status Last Admin Dose Admin Acetaminophen (Tylenol Tab) 650 mg Q6HP PRN PO HEADACHE or DISCOMFORT 05/23/19 21:15 05/25/19 21:26 Al Hydrox/Mg Hydrox/Simethicone (Mylanta) 30 ml Q4HP PRN PO HEARTBURN/INDIGESTION 05/23/19 21:15 Albuterol Sulfate (Proventil Neb) 1 mg Q4H PRN NEB SOB/WHEEZING 05/23/19 21:15 Atorvastatin Calcium (Lipitor) 80 mg DAILY PO 05/24/19 09:00 05/26/19 08:20 Benztropine Mesylate (Cogentin) 1 mg BID PO 05/24/19 00:45 05/26/19 08:20 Benztropine Mesylate (Cogentin) 1 mg BID PO 05/24/19 09:00 05/24/19 00:42 DC Buspirone HCl (Buspar) 15 mg TID PO 05/24/19 00:45 05/26/19 08:20 Buspirone HCl (Buspar) 15 mg TID PO 05/24/19 09:00 05/24/19 00:42 DC Clopidogrel Bisulfate (PLAVix) 75 mg DAILY PO 05/24/19 09:00 05/26/19 08:21 Famotidine (Pepcid) 20 mg DAILY PO 05/24/19 09:00 05/24/19 00:42 DC Famotidine (Pepcid) 20 mg QHS PO 05/24/19 00:45 05/25/19 20:22 Haloperidol (Haldol) 5 mg QHS PO 05/24/19 00:45 05/25/19 20:22 Haloperidol (Haldol) 5 mg QHS PO 05/24/19 21:00 05/24/19 00:42 DC Home Med (Med Rec Complete!) ASDIRECTED XX 05/23/19 19:00 05/23/19 18:54 DC Levothyroxine Sodium (Synthroid) 25 mcg DAILY@0600 PO 05/24/19 06:00 05/26/19 06:20 Losartan Potassium (Cozaar) 50 mg DAILY PO 05/24/19 09:00 05/26/19 08:20 Magnesium Hydroxide (Milk Of Magnesia) 30 ml DAILYPRN PRN PO CONSTIPATION 05/23/19 21:15 Metoprolol Succinate (TopROL XL) 25 mg DAILY PO 05/24/19 09:00 05/26/19 08:20 Mirtazapine (Remeron) 30 mg QHS PO 05/24/19 00:45 05/25/19 20:22 Mirtazapine (Remeron) 30 mg QHS PO 05/24/19 21:00 05/24/19 00:42 DC Nitroglycerin (Nitrostat (1/ 150)) 0.4 mg Q5MP PRN SL CHEST PAIN 05/23/19 21:30 Omeprazole (PriLOSEC) 20 mg DAILY PO 05/24/19 09:00 05/26/19 08:20 Paroxetine HCl (PAXil) 20 mg DAILY PO 05/25/19 09:00 05/26/19 08:19 Ranolazine (Ranexa) 500 mg BID PO 05/24/19 00:45 05/26/19 08:21 Ranolazine (Ranexa) 500 mg BID PO 05/24/19 09:00 05/24/19 00:42 DC Trazodone HCl (Desyrel) 50 mg QHSP PRN PO INSOMNIA 05/23/19 21:15 05/25/19 20:22 Allergies Coded Allergies: aspirin (Verified Allergy, Severe, throat closes up, 04/19/19) shellfish derived (Verified Allergy, Severe, ANAPHYLAXIS, 04/19/19) risperidone (Verified Allergy, Intermediate, rash, 04/19/19) divalproex sodium (Verified Adverse Reaction, Unknown, diarrhea, 04/19/19) SHWETA SMALLS DO May 26, 2019 9:53 am
[2019-05-26 16:15] VITALS: BP 127/60
[2019-05-26] MEDS: traZODone 50 MG TAB PO PRN (20:06)
[2019-05-26] MEDS: haloperidoL 5 MG TAB PO SCH (20:07)
[2019-05-26] MEDS: FAMOTIDINE 20 MG TAB PO SCH (20:07)
[2019-05-26] MEDS: MIRTAZAPINE 15 MG TAB PO SCH (20:07)
[2019-05-26] MEDS: ACETAMINOPHEN TAB 650MG DOSE (2X325MG) PO PRN (20:10)
[2019-05-27] MEDS: LEVOTHYROXINE 25MCG TABLET (0.025MG) PO SCH (06:09)
[2019-05-27 06:21] VITALS: BP 94/50
[2019-05-27] MEDS: BENZTROPINE 1 MG TAB PO SCH ×2 (08:58→20:03)
[2019-05-27] MEDS: LOSARTAN 50 MG TAB PO SCH (08:58)
[2019-05-27] MEDS: OMEPRAZOLE 20 MG CAP PO SCH (08:58)
[2019-05-27] MEDS: METOPROLOL SUCC *XL* 25MG TAB (TopROL *XL*) PO SCH (08:58)
[2019-05-27] MEDS: RANOLAZINE 500 MG ER TAB PO SCH ×2 (08:58→20:03)
[2019-05-27] MEDS: busPIRone 5 MG TAB PO SCH ×3 (08:58→20:03)
[2019-05-27] MEDS: PARoxetine 20 MG TAB PO SCH (08:58)
[2019-05-27] MEDS: CLOPIDOGREL 75 MG TAB PO SCH (08:58)
[2019-05-27] MEDS: ATORVASTATIN 20 MG TAB PO SCH (08:58)
[2019-05-27 16:03] VITALS: BP 112/85
[2019-05-27] MEDS: FAMOTIDINE 20 MG TAB PO SCH (20:03)
[2019-05-27] MEDS: MIRTAZAPINE 15 MG TAB PO SCH (20:03)
[2019-05-27] MEDS: haloperidoL 5 MG TAB PO SCH (20:03)
[2019-05-27] MEDS: traZODone 50 MG TAB PO PRN (20:03)
[2019-05-28] MEDS: LEVOTHYROXINE 25MCG TABLET (0.025MG) PO SCH (06:04)
[2019-05-28 06:44] VITALS: BP 120/59
[2019-05-28] MEDS: PARoxetine 20 MG TAB PO SCH (08:33)
[2019-05-28] MEDS: LOSARTAN 50 MG TAB PO SCH (08:33)
[2019-05-28] MEDS: ATORVASTATIN 20 MG TAB PO SCH (08:33)
[2019-05-28] MEDS: BENZTROPINE 1 MG TAB PO SCH ×2 (08:33→20:27)
[2019-05-28] MEDS: OMEPRAZOLE 20 MG CAP PO SCH (08:34)
[2019-05-28] MEDS: busPIRone 5 MG TAB PO SCH ×3 (08:34→20:27)
[2019-05-28] MEDS: METOPROLOL SUCC *XL* 25MG TAB (TopROL *XL*) PO SCH (08:34)
[2019-05-28] MEDS: RANOLAZINE 500 MG ER TAB PO SCH ×2 (08:34→20:28)
[2019-05-28] MEDS: CLOPIDOGREL 75 MG TAB PO SCH (08:34)
--- NOTE | 2019-05-28 10:16 | MHIPNPDOC ---
[facility] Progress Note Progress Note DATE OF SERVICE: 05/28/19 HISTORY:Patient is a 43 -year-old , female, with a history of PTSD and polysubstance abuse and recently d/c IMHU for unspecified psychosis secondary to Monica use 1 month ago who was brought to ED by PD on . after she was seen at [facility] endorsing SI with a plan to OD. Pt stated in the ED that she recently moved from [place] to [place] after she relapsed on amphetamines and Monica 1.5yrs ago to get into recovery. States soon after moving in with her niece she realized that her niece was also abusing substances and pt therefore was unable to stay clean. Pt stated in the ED that she woke up yesterday feeling very depressed and suicidal which caused her to line up her pills to overdose but then called her daughter instead who encouraged her to get help so pt went to [facility] as a walk-in who then sent her to ED with PD. Endorses current use of Adderall and and Monica and wants to get help to stop abuse. Pt seen and states she been feeling "really depressed" and suicidal due to her relapse on adderall and monica with continued use. States depression caused her to line up all her pills yesterday to OD on them but called her daughter instead who encouraged her to go to [facility] for help. Pt states that she hasn't been very compliant on her outpatient meds which is making her feel depressed too. States she used to take paxil for depression that she found very beneficial and would like to start again here to help which will be done. She is interested to referral to inpatient substance abuse to aid her in getting into recovery. Denies current SI/HI, hallucinations, delusions. Feels safe here. VITAL SIGNS: See below. NEW TEST RESULTS: See below. CURRENT MEDICATIONS: See below. MENTAL STATUS EXAMINATION: General Appearance: unkempt, disheveled, ds/not appear stated age (older), hospital scrubs/clothing, other (malodorous) Build: overweight Demeanor: less withdrawn Eye Contact: average Activity: average Behavior: cooperative, less withdrawn Speech: clear, spontaneous, reg in volume Mood: less depressed Mood "alright" Affect: less constricted, less flat, congruent Thought Process: logical/linear, less depressed, intact Thought Content (Delusions): none reported, denies SI, HI, AVH Thought Content (Other): none reported Thought Content (Aggressive): none reported Perception (Hallucinations): none reported Perception (Other): none reported Cognition (Impairment of): none reported Cognition(Intelligence Est.): average Oriented: Awake, Alert, Oriented times three Insight: fair Judgment: Fair Psychosis: Denies DIAGNOSES: Depression unspecified 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 States she does have a place to stay tomorrow but that it may not be a sober place. Encouraged to focus on her goal of getting into rehab and staying sober. She will have outpatient rehab services to attend to also help her after d/c unit she gets into inpatient rehab. States she continues to sleep well at night. Feels she is tolerating his medications and they're beneficial. Feels paxil is beneficial to her mood.. She is attending groups and finding them helpful. She denies SI/HI, hallucinations, delusions. Pt is referred to inpatient rehap which she states she feels really good about and is hopeful to be accepted soon. Pt feels safe here. MANAGEMENT PLAN: continue plan, refer to inpatient rehab. D/c planning tomorrow. Haldol 5 mg nightly BuSpar 15 mg TID Remeron 30 mg QHS Trileptal 300 mg BID paxil 20mg daily for mood TIME SPENT: 30 minutes. Vital Signs Vital Signs Date Time Temp Pulse Resp B/P (MAP) Pulse Ox O2 Delivery O2 Flow Rate FiO2 05/28/19 08:34 Room Air 05/28/19 08:34 69 113/58 05/28/19 06:44 98.1 14 05/23/19 23:44 99 Current Medications Current Medications Medications (Trade) Dose Ordered Sig/Kody Route PRN Reason Start Time Stop Time Status Last Admin Dose Admin Acetaminophen (Tylenol Tab) 650 mg Q6HP PRN PO HEADACHE or DISCOMFORT 05/23/19 21:15 05/26/19 20:10 Al Hydrox/Mg Hydrox/Simethicone (Mylanta) 30 ml Q4HP PRN PO HEARTBURN/INDIGESTION 05/23/19 21:15 Albuterol Sulfate (Proventil Neb) 1 mg Q4H PRN NEB SOB/WHEEZING 05/23/19 21:15 Atorvastatin Calcium (Lipitor) 80 mg DAILY PO 05/24/19 09:00 05/28/19 08:33 Benztropine Mesylate (Cogentin) 1 mg BID PO 05/24/19 00:45 05/28/19 08:33 Benztropine Mesylate (Cogentin) 1 mg BID PO 05/24/19 09:00 05/24/19 00:42 DC Buspirone HCl (Buspar) 15 mg TID PO 05/24/19 00:45 05/28/19 08:34 Buspirone HCl (Buspar) 15 mg TID PO 05/24/19 09:00 05/24/19 00:42 DC Clopidogrel Bisulfate (PLAVix) 75 mg DAILY PO 05/24/19 09:00 05/28/19 08:34 Famotidine (Pepcid) 20 mg DAILY PO 05/24/19 09:00 05/24/19 00:42 DC Famotidine (Pepcid) 20 mg QHS PO 05/24/19 00:45 05/27/19 20:03 Haloperidol (Haldol) 5 mg QHS PO 05/24/19 00:45 05/27/19 20:03 Haloperidol (Haldol) 5 mg QHS PO 05/24/19 21:00 05/24/19 00:42 DC Home Med (Med Rec Complete!) ASDIRECTED XX 05/23/19 19:00 05/23/19 18:54 DC Levothyroxine Sodium (Synthroid) 25 mcg DAILY@0600 PO 05/24/19 06:00 05/28/19 06:04 Losartan Potassium (Cozaar) 50 mg DAILY PO 05/24/19 09:00 05/28/19 08:33 Magnesium Hydroxide (Milk Of Magnesia) 30 ml DAILYPRN PRN PO CONSTIPATION 05/23/19 21:15 Metoprolol Succinate (TopROL XL) 25 mg DAILY PO 05/24/19 09:00 05/28/19 08:34 Mirtazapine (Remeron) 30 mg QHS PO 05/24/19 00:45 05/27/19 20:03 Mirtazapine (Remeron) 30 mg QHS PO 05/24/19 21:00 05/24/19 00:42 DC Nitroglycerin (Nitrostat (1/ 150)) 0.4 mg Q5MP PRN SL CHEST PAIN 05/23/19 21:30 Omeprazole (PriLOSEC) 20 mg DAILY PO 05/24/19 09:00 05/28/19 08:34 Paroxetine HCl (PAXil) 20 mg DAILY PO 05/25/19 09:00 05/28/19 08:33 Ranolazine (Ranexa) 500 mg BID PO 05/24/19 00:45 05/28/19 08:34 Ranolazine (Ranexa) 500 mg BID PO 05/24/19 09:00 05/24/19 00:42 DC Trazodone HCl (Desyrel) 50 mg QHSP PRN PO INSOMNIA 05/23/19 21:15 05/27/19 20:03 Allergies Coded Allergies: aspirin (Verified Allergy, Severe, throat closes up, 04/19/19) shellfish derived (Verified Allergy, Severe, ANAPHYLAXIS, 04/19/19) risperidone (Verified Allergy, Intermediate, rash, 04/19/19) divalproex sodium (Verified Adverse Reaction, Unknown, diarrhea, 04/19/19) SHWETA SMALLS DO May 28, 2019 10:16 am
[2019-05-28 16:17] VITALS: BP 136/67
[2019-05-28] MEDS: traZODone 50 MG TAB PO PRN (20:27)
[2019-05-28] MEDS: haloperidoL 5 MG TAB PO SCH (20:27)
[2019-05-28] MEDS: MIRTAZAPINE 15 MG TAB PO SCH (20:27)
[2019-05-28] MEDS: FAMOTIDINE 20 MG TAB PO SCH (20:28)
[2019-05-29] MEDS: LEVOTHYROXINE 25MCG TABLET (0.025MG) PO SCH (05:59)
[2019-05-29 06:23] VITALS: BP 121/69
[2019-05-29 08:19] VITALS: BP 112/55
[2019-05-29] MEDS: LOSARTAN 50 MG TAB PO SCH (08:19)
[2019-05-29] MEDS: METOPROLOL SUCC *XL* 25MG TAB (TopROL *XL*) PO SCH (08:19)
[2019-05-29] MEDS: ATORVASTATIN 20 MG TAB PO SCH (08:19)
[2019-05-29] MEDS: CLOPIDOGREL 75 MG TAB PO SCH (08:19)
[2019-05-29] MEDS: busPIRone 5 MG TAB PO SCH (08:19)
[2019-05-29] MEDS: OMEPRAZOLE 20 MG CAP PO SCH (08:19)
[2019-05-29] MEDS: BENZTROPINE 1 MG TAB PO SCH (08:19)
[2019-05-29] MEDS: PARoxetine 20 MG TAB PO SCH (08:20)
[2019-05-29] MEDS: RANOLAZINE 500 MG ER TAB PO SCH (08:20)
[2019-05-29] MEDS ORDERED: OXCA300T14 PO (08:37)
[2019-05-29] MEDS ORDERED: BUSP15TA47 PO (08:37)
[2019-05-29] MEDS ORDERED: HALO5TA PO (08:37)
[2019-05-29] MEDS ORDERED: REME30TA PO (08:37)
[2019-05-29] MEDS ORDERED: BENZ-52 PO (08:37)
--- NOTE | 2019-05-29 08:38 | MHDSPDOC ---
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 Pt stated in the ED that she recently moved from [place] to [place] after she relapsed on amphetamines and Monica 1.5yrs ago to get into recovery. States soon after moving in with her niece she realized that her niece was also abusing substances and pt therefore was unable to stay clean. Pt stated in the ED that she woke up yesterday feeling very depressed and suicidal which caused her to line up her pills to overdose but then called her daughter instead who encouraged her to get help so pt went to [facility] as a walk-in who then sent her to ED with PD. Endorses current use of Adderall and and Monica and wants to get help to stop abuse. Pt seen and states she been feeling "really depressed" and suicidal due to her relapse on adderall and monica with continued use. States depression caused her to line up all her pills yesterday to OD on them but called her daughter instead who encouraged her to go to [facility] for help. Pt states that she hasn't been very compliant on her outpatient meds which is making her feel depressed too. States she used to take paxil for depression that she found very beneficial and would like to start again here to help which will be done. She is interested to referral to inpatient substance abuse to aid her in getting into recovery. Denies current SI/HI, hallucinations, delusions. Feels safe here. CONSULTANTS INVOLVED: none TREATMENT AND PROGRESS ON THE UNIT : Pt was admitted to [facility], seen for psychiatric assessment and restarted on her outpatient medications Haldol 5 mg nightly, BuSpar 15 mg TID, Remeron 30 mg QHS, Trileptal 300 mg BID. She was started on paxil 20mg daily for mood as she has taken it in the past and found it beneficial. Pt found her medications beneficial and tolerated them well. She was referred to inpatient rehab at her request to help with her substance abuse problem. She attended groups daily during her stay. Her symptoms improved with treatment. On day of discharge she denied depression, anxiety, insomnia, SI/HI, hallucinations, delusions. She was discharged home with follow-up at [facility] and [facility] as pt waits to get into inpatient rehab. She felt safe for discharge DISCHARGE ASSESSMENT: Pt seen and states that her mood is "good" and is looking forward to going home today and continuing to call rehabs she was referred to to find out when she is accepted and has a bed date for admission. Encouraged to focus on her goal of getting into rehab and staying sober. She will have outpatient rehab services to attend to also help her after d/c unit she gets into inpatient rehab which she plans to attend. States she continues to sleep well at night. Feels she is tolerating his medications and they're beneficial. Feels paxil is beneficial to her mood. She is attending groups and finding them helpful. She denies depression, anxiety, insomnia,SI/HI, hallucinations, delusions. Pt is referred to inpatient rehab which she states she feels really good about and is hopeful to be accepted soon. Pt feels safe to d/c home. MENTAL STATUS EXAMINATION ON DISCHARGE: General Appearance: unkempt, disheveled, ds/not appear stated age (older), hospital scrubs/clothing, other (malodorous) Build: overweight Demeanor: cooperative Eye Contact: average Activity: average Behavior: cooperative, Speech: clear, spontaneous, reg in volume Mood: euthymic, full range Mood "good" Affect: euthymic, congruent Thought Process: logical/linear, intact Thought Content (Delusions): none reported, denies SI, HI, AVH Thought Content (Other): none reported Thought Content (Aggressive): none reported Perception (Hallucinations): none reported Perception (Other): none reported Cognition (Impairment of): none reported Cognition(Intelligence Est.): average Oriented: Awake, Alert, Oriented times three Insight: good Judgment: good Psychosis: Denies MEDICATIONS ON DISCHARGE: Haldol 5 mg nightly BuSpar 15 mg TID Remeron 30 mg QHS Trileptal 300 mg BID paxil 20mg daily for mood PLAN/FOLLOWUP ARRANGEMENTS: D/c home with follow-up at [facility] and [facility] as pt waits to get into inpatient rehab. The amount of time spent in the coordination of care for this patient was approximately 30 minutes. Vital Signs/I&Os Vital Signs Date Time Temp Pulse Resp B/P (MAP) Pulse Ox O2 Delivery O2 Flow Rate FiO2 05/29/19 08:19 70 112/55 05/29/19 06:23 97.8 16 05/28/19 16:17 Room Air 05/23/19 23:44 99 Medications Scheduled Atorvastatin Calcium (Atorvastatin Calcium) 80 Mg Tablet, 80 MG PO DAILY, (Reported) Benztropine Mesylate (Benztropine Mesylate) 1 Mg Tablet, 1 MG PO BID, (Reported) Buspirone HCl (Buspirone HCl) 15 Mg Tablet, 15 MG PO TID, (Reported) Cholecalciferol (Vitamin D3) (Vitamin D3) 2,000 Unit Tab.chew, 2,000 UNIT PO DAILY, (Reported) Clopidogrel Bisulfate (Plavix) 75 Mg Tablet, 75 MG PO DAILY, (Reported) Famotidine (Famotidine) 20 Mg Tablet, 20 MG PO DAILY, (Reported) Haloperidol (Haloperidol) 5 Mg Tablet, 5 MG PO QHS, (Reported) Haloperidol Decanoate (Haldol Decanoate 100) 100 Mg/1 Ml Ampul, 1 ML IM QMONTH, (Reported) Levothyroxine Sodium (Levothyroxine Sodium) 25 Mcg Tablet, 25 MCG PO DAILY, (Reported) Losartan Potassium (Losartan Potassium) 50 Mg Tablet, 50 MG PO DAILY, (Reported) Metoprolol Succinate (Metoprolol Succinate) 25 Mg Tab.er.24h, 25 MG PO DAILY, (Reported) Mirtazapine (Remeron) 30 Mg Tablet, 30 MG PO QHS, (Reported) Omeprazole (Omeprazole) 20 Mg Capsule.dr, 20 MG PO DAILY, (Reported) Oxcarbazepine (Oxcarbazepine) 300 Mg Tablet, 300 MG PO BID, (Reported) Ranolazine (Ranexa) 500 Mg Tab.er.12h, 500 MG PO BID, (Reported) Scheduled PRN Albuterol Sulf (Albuterol Sulfate) 2.5 Mg/3 Ml Vial.neb, 1 VIAL NEB Q4H PRN for SOB/WHEEZING, (Reported) Albuterol Sulfate (Proair Hfa) 8.5 Gm Hfa.aer.ad, 2 PUFF INH QID PRN for SHORTNESS OF BREATH, (Reported) Nitroglycerin (Nitrostat) 0.4 Mg Tab.subl, 0.4 MG SL NITRO PRN for CHEST PAIN, (Reported) Allergies Coded Allergies: aspirin (Verified Allergy, Severe, throat closes up, 04/19/19) shellfish derived (Verified Allergy, Severe, ANAPHYLAXIS, 04/19/19) risperidone (Verified Allergy, Intermediate, rash, 04/19/19) divalproex sodium (Verified Adverse Reaction, Unknown, diarrhea, 04/19/19) SHWETA SMALLS DO May 29, 2019 8:38 am
[2019-05-29] MEDS ORDERED: PAXI20TA29 PO (09:57)
== END 2019-05-29 11:17 | disposition home or self-care (01) | DRG 754 ==
LOC: M ED 15:15 → M ED INP 21:15 → M PSY 23:38
PROVIDERS: ADMIT Psychiatry & Neurology Psychiatry; ATTEND Psychiatry & Neurology Psychiatry
DX: F32.9 Major depressive disorder, single episode, unspecified (principal); I10 Essential (primary) hypertension; R45.851 Suicidal ideations; F12.90 Cannabis use, unspecified, uncomplicated; F16.90 Hallucinogen use, unspecified, uncomplicated; F43.10 Post-traumatic stress disorder, unspecified; F15.90 Other stimulant use, unspecified, uncomplicated; Z79.899 Other long term (current) drug therapy; Z88.8 Allergy status to other drugs, medicaments and biological substances; Z88.6 Allergy status to analgesic agent; Z91.013 Allergy to seafood; I25.10 Atherosclerotic heart disease of native coronary artery without angina pectoris; K21.9 Gastro-esophageal reflux disease without esophagitis; I25.2 Old myocardial infarction; E03.9 Hypothyroidism, unspecified